=== PATIENT | female | born 1965 ===

== ENCOUNTER → 2021-01-08 | Outpatient (CLI) | payer OTHER ==
[~2021-01-08] VITALS: Ht 167.6 cm; Wt 93.8 kg
[~2021-01-08] MED LIST: CLARITIN10 M3 PO; ESTRODIAL PO; FLONASE 0.05%50 MCG NARES; MULTI VITAMIN1 EACH PO; SINGULAIR 10 MG10 M1 PO; [UNRECOGNIZED DRUG - OTHER] PO
[2021-01-08 13:40] VITALS: BP 124/66
--- NOTE | 2021-01-08 15:19 | NUR ---
Pain Clinic Assessment: 1. History of Osteoarthritis: Not Applicable History of Rheumatoid Arthritis: Not Applicable 2. Height: 5 ft. 6 in. 167.6 cm. Weight: 206.8 lb. oz. 93.804 kg. Patient's BMI: 33.4 3. Vital Signs: BP: 124/66 Pulse: 73 Resp: 16 Temp: 02 Sat: 100 ECG Mon: 4. Pain Intensity: 4 5. Fall Risk: Dizziness: N Needs help standing or walking: N Fallen in the last 3 months: N Fall risk comments: 6. Patient on Blood Thinner: None 7. History of Hypertension: N 8. Opioid Therapy greater than 6 weeks: N Opiate Contract Signed: 9. Risk Assessment Tool Provided: LOW 10. Functional Assessment Tool: 34/ 11. Recreational Drug Use: Never Drug Type: Tobacco Use: Never Smoker Tobacco Type: Amount or Packs/day: How Many Years: Alcohol Use: Yes Frequency: Weekly Quant: 1
--- NOTE | 2021-01-14 08:45 | P ---
[facility] [place] [address] [place] [address] PROCEDURE REPORT Name: BISI NAIR Room #: REG Sebas Abdullahi#: [id number] Admission: 01/08/21 Attend Phys: Glenn Alva DO Discharge: Date of : 65 Report #: [id number] THIS REPORT FOR: cc: CHRIS ARAMBULA Physician not on staff Glenn Alva DO ~ DATE OF SERVICE: 01/08/2021 PROCEDURE PERFORMED: L5-S1 left paramedian epidural steroid injection under fluoroscopic guidance. DESCRIPTION OF PROCEDURE: After obtaining written consent, the patient was taken back to fluoroscopy suite, placed in prone position with pillow under abdomen to decrease lumbar lordosis. Skin overlying lumbosacral area prepped and draped in aseptic fashion. The L5-S1 vertebral interspace was identified by AP fluoroscopy. Skin and subcutaneous tissue overlying target site of injection anesthetized with 3 mL of 1% lidocaine. A 20-gauge 3-1/2 inch Tuohy needle was advanced under fluoroscopic guidance towards the epidural space using a left paramedian approach. Epidural space identified using loss of resistance to air technique. After negative aspiration for heme or cerebrospinal fluid, 1 mL of Isovue injected. Lumbar epidurogram was confirmed using both AP and lateral fluoroscopy. After negative aspiration for heme or cerebrospinal fluid, 5 mL of a solution containing 2 mL 40 mg per mL, 80 mg total triamcinolone along with 3 mL of lidocaine 1% injected slowly. Needle retracted shelter, flushed with 1 mL of 1% lidocaine, then removed. Sterile bandage placed over injection site. No new motor deficits present in the lower extremities following the procedure. The patient tolerated procedure well, carefully escorted to recovery room in stable condition. No apparent complications. After meeting discharge criteria, the patient discharged home. <ELECTRONICALLY SIGNED> By: Glenn Alva DO 01/14/21 0845 [id number] Glenn Alva DO /nt
--- NOTE | 2021-01-14 08:45 | HPC ---
[facility] [place] [address] PAIN MANAGEMENT CONSULTATION Name: BISI NAIR Room #: REG ISSAC Rebekah.#: [id number] Admission: 01/08/21 Attend Phys: Glenn Alva DO Discharge: Date of : 65 Report #: [id number] THIS REPORT FOR: cc: CHRIS OBANDO Physician not on staff Glenn Alva DO ~ DATE OF SERVICE: 01/08/2021 REFERRING PHYSICIAN: Deloris Obando. CHIEF COMPLAINT: Low back pain, left lower extremity pain with paresthesias. HISTORY OF PRESENT ILLNESS: As you know, the patient is an extremely pleasant 55-year-old female who has had a longstanding history of low back pain, left lower extremity pain with paresthesias that began in 10/2018. She denies any specific injury or trauma. We initially saw this patient in our clinic at [facility], diagnosed with lumbar radiculopathy secondary to the displacement of lumbar intervertebral disk and underwent a lumbar epidural injection under fluoroscopic guidance. The patient did very well with that initial injection reporting up to 8 months improvement in overall pain. Unfortunately, the patient's insurance changed and she was no longer covered to undergo injections at [facility]. She had to transfer her care to [facility] where she was treated with injections that provided no benefit. She contacted her primary care physician who then referred the patient up to our clinic at [facility] where she could undergo the injections without complications. She returns to our clinic today to address low back and right lower extremity symptoms. The patient indicates today her pain is continuous, describes the pain as burning, aching, numbness and tingling, places current pain score of 4/10, daily average of 4/10, worst pain has been 7/10. The patient states that "everything exacerbates symptoms, nothing but the previous epidural injection provided at our visit at [facility] provided benefit. She has returned per the request of her PCP to undergo next in the series of epidural injections. ALLERGIES: SULFA DRUGS. CURRENT MEDICATIONS: Estradiol 1 mg once a day, multivitamin 1 tab per day, montelukast sodium 10 mg per day, fluticasone 1 spray each nostril per day, loratadine 10 mg per day. PAST MEDICAL HISTORY: Asthma, history of TIA with no residual deficits. PAST SURGICAL HISTORY: 1. Hysterectomy. 2. Bilateral salpingo-oophorectomy. [address] [address] PAIN MANAGEMENT CONSULTATION Name: BISI NAIR [id number] Admission: 01/08/21 Attend Phys: Glenn Alva DO Discharge: Date of : 65 Report #: [id number] 3. Appendectomy. 4. section. SOCIAL HISTORY: The patient denies tobacco, IV or illicit drug use. Admits to 1 alcohol beverage per day. 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 She is reportedly in litigation in regards to pain, unaccompanied at today's visit. REVIEW OF SYSTEMS: Positive for headaches, wearing corrective eyewear, earaches with drainage, possible heart trouble secondary to chest pain recently evaluated, asthma and wheezing, ____ low back pain, left lower extremity pain with paresthesias with intermittent right lower extremity pain with paresthesias. All other review of systems negative per 12-point review of systems other than those listed in history of present illness. Pain impact score 34/70 indicating moderate interference of daily activities secondary to pain. IMAGING: No new imaging available. PHYSICAL EXAMINATION: VITAL SIGNS: Blood pressure 124/66, pulse is 73, respiratory rate 16 and unlabored. The patient is 100% on room air. Height 5 feet 6 inches tall, weight 206.8 pounds, BMI calculated 33.4. GENERAL: Well-developed, well-nourished, well-hydrated 55-year-old female appearing stated age, pain is rated today at around 4/10. HEENT: Normocephalic, atraumatic. Pupils are equal, round and reactive. NEUROLOGIC: Speech is fluent. The patient deemed a good historian. She is wearing a mask in compliance with COVID-19 regulations. LUNGS: Appear clear. No wheeze, rhonchi or rales. CARDIOVASCULAR: Regular. No appreciable gallop, no rub. ABDOMEN: Soft, mildly obese, normoactive bowel sounds. EXTREMITIES: Show no clubbing, no cyanosis. No appreciable edema. MUSCULOSKELETAL: Lower extremity strength appears symmetrical 5/5. She is intact to light touch from L1 through S2 dermatomes. Seated straight leg raising negative. Supine straight leg raising positive on the left. Osiris's test is negative. Modified Gaenslen's positive for axial low back pain. Ankle clonus negative. Babinski is negative. Gait appears mildly antalgic favoring left lower extremity. Muscle bulk and tone equal and symmetrical in lower extremities. ASSESSMENT: 1. Symptomatic lumbar radiculopathy. 2. Displacement of lumbar intervertebral disk with radiculopathy. 3. Lumbosacral spondylosis with radiculopathy. [facility] [address] [place] [address] PAIN MANAGEMENT CONSULTATION Name: BISI NAIR Room #: REG ISSAC Abdullahi#: [id number] Admission: 01/08/21 Attend Phys: Glenn Alva DO Discharge: Date of : 65 Report #: [id number] 4. Chronic intractable pain. PLAN: 1. The patient has returned today in followup visit to discuss ongoing low back pain, left lower extremity pain and paresthesias. The patient has been lost to follow up since 07/2019. At that visit, the patient underwent a lumbar epidural injection at our [facility] office and did very well, reporting 8 months of improvement in symptoms. Unfortunately, she had an insurance change, which was not covered by our facilities at [facility]. She was seen by a pain physician in [place] who provided 2 different injections to the patient that gave no analgesic benefit. She discussed this further with her PCP and they chose a referral to the clinic at [facility] as the patient to be seen there to undergo injections. She made today's appointment to undergo lumbar epidural injection to address ongoing pain. She is placing her current pain score at 4/10. She is hopeful to undergo lumbar epidural injection similar to what she has undergone in 07/2019 with good benefit. The patient has been advised risks and benefits of a lumbar epidural injection. These risks include but are not necessarily limited to bleeding, bruising, infection, worsening of pain, no relief of pain, also risk of temporary or permanent muscle weakness, temporary or permanent nerve damage, possible paralysis, post-dural puncture headache and . The patient states understood and wished to proceed. 2. No medication changes made at today's visit. The patient will continue current medical therapy as prior prescribed. 3. We plan to see the patient back in followup visit on an as needed basis for the next in the series of epidural injections. We are hopeful the patient will see good and prolonged benefit with today's procedure. <ELECTRONICALLY SIGNED> By: Glenn Alva DO 01/14/21 0845 [id number] Glenn Alva DO /nt
== END | disposition home or self-care (01) ==
LOC: PAIN 06:57
PROVIDERS: ATTEND Anesthesiology Pain Medicine
DX: M51.16 Intervertebral disc disorders with radiculopathy, lumbar region (principal); M47.27 Other spondylosis with radiculopathy, lumbosacral region; G89.29 Other chronic pain; J45.909 Unspecified asthma, uncomplicated; Z98.890 Other specified postprocedural states; Z79.899 Other long term (current) drug therapy; Z90.710 Acquired absence of both cervix and uterus; Z90.49 Acquired absence of other specified parts of digestive tract; Z88.2 Allergy status to sulfonamides; Z86.73 Personal history of transient ischemic attack (TIA), and cerebral infarction without residual deficits